=== PATIENT | male | born 1970 | race Hispanic/Latino ===

== ENCOUNTER 2024-02-06 18:26 | Emergency (ER) | payer BC, SELFPAY ==
[2024-02-06 18:35] VITALS: BP 94/61
--- NOTE | 2024-02-06 21:27 | ED.GENMED ---
History of Present Illness
General
Chief Complaint: Alcohol Problem
Source: patient
Exam Limitations: none
Time Seen by Provider: 02/06/24 18:45
Nursing documentation reviewed up to this point in time: agreed with
History of Present Illness
History of Present Illness:
53-year-old male past with history of hypertension hyperlipidemia presenting to the emergency department today with concerns of drinking alcohol tonight. He was in a dispute with his drank alcohol they were concerned of his health and sent him
to the ER. He denies any thoughts of harming himself or others and does occasionally drink. He claims to have at least a drink or 2/day. Today claimed to have roughly 3/4 of 1/5 of tequila.
Past History
Past History
ED Past Medical History: None
ED Past Surgical History: None
Review of Systems
Review of Systems
Allergies reviewed?: Yes
All Other Systems: ROS reviewed and negative except as documented in HPI and ROS
Phy Exam
Physical Exam
Physical Exam:
GENERAL: Alert , in no apparent distress
EYE: pupils equal and reactive
NECK: Supple, no significant adenopathy.
ENT: o/p clr, mmm.
CARDIAC: Regular rate and rhythm .
LUNGS: Clear breath sounds bilaterally, no acute respiratory distress, no wheezes/rales/rhonchi
ABDOMEN: Soft, without focal tenderness, no r/g, no cvat
NEUROLOGICAL: Alert and oriented, no focal neuro deficits
SKIN: Warm and dry, skin intact.
MUSCULOSKELETAL: No edema, well perfused.
PSYCH: Normal and appropriate interaction.
Scores
Withdrawal Assessment of Alcohol
Withdrawal Assessment Completed?: No
Course
Vital Signs
Initial and Last Documented VS:
Initial Vital Signs
Temp Pulse Resp BP Pulse Ox
97.6 F 87 16 94/61 97
02/06/24 18:35 02/06/24 18:35 02/06/24 18:35 02/06/24 18:35 02/06/24 18:35
Last Documented Vital Signs
Temp Pulse Resp BP Pulse Ox
97.6 F 87 16 94/61 97
02/06/24 18:35 02/06/24 18:35 02/06/24 20:00 02/06/24 18:35 02/06/24 18:35
MDM/Problems Addressed
MDM/Problems Addressed:
53-year-old male presenting to the emergency department today with concerns of drinking alcohol after dispute with his . Adamantly denies any thoughts of harming himself. Patient is fully alert and oriented during my assessment here. He was
watched here for multiple hours and was clinically sober at time of discharge. No indication for 302 went home with his . Return precautions given.
*Critical Care Note
Total Time (30-74mins, 75-104mins- exclusive of procedures): Not Applicable
ED Attending Note
-
Portions of this chart may have been created with voice recognition software.� Occasional wrong word or��sound alike� substitutions may have occurred due to the inherent limitations of voice recognition software.
Discharge Plan
Departure
Patient Disposition: Home (Routine Discharge)
Date of Disposition: 02/06/24
Time of Disposition: 21:29
Patient with high blood pressure during this ER visit?: No
Condition: Good
Covid-19: Not Applicable
Discharge Problem:
Alcohol use
Instructions: Alcohol Use Disorder (DC)
Prescriptions:
No Action
prednisone 20 MG tablet
40 mg PO DAILY Qty: 8 0RF
dexamethasone 2 mg tablet
10 mg PO DAILY Qty: 5 0RF
albuterol sulfate [ProAir HFA] 90 mcg/actuation Hfa Aerosol Inhaler
2 puff INHALATION Q4HPRN PRN (Reason: shortness of breath) Qty: 8.5 0RF
Referrals:
UNKNOWN - PT NOT,INTERVIEWE [Family Provider] -
Interventions
Interventions:
*Risk Screen - Suicide Last Done: 02/06/24 18:35
*General Assessment Last Done: 02/06/24 18:35
*Neglect/Abuse Screening Last Done: 02/06/24 18:35
ED- Fall Risk Assessment Last Done: 02/06/24 18:52
*ED COVID-19 Vaccine History Last Done: 02/06/24 18:35
ED- Neurological Assessment Last Done: 02/06/24 18:52
ED-Psychological Assessment Last Done: 02/06/24 18:52
Discharge Date and Time
Print Language: [id number]
== END 2024-02-06 22:26 | disposition home or self-care (01) ==
LOC: EMR 18:26
PROVIDERS: EMERGENCY PHYSICIAN Student in an Organized Health Care Education/Training Program
DX: F10.90 Alcohol use, unspecified, uncomplicated (principal); I10 Essential (primary) hypertension; E78.5 Hyperlipidemia, unspecified
CPT/HCPCS: 99283